=== PATIENT | female | born 1935 | race American Indian/Alaskan Native ===

== ENCOUNTER 2019-02-11 16:52 | Emergency (ER) | payer MEDICARE ==
[2019-02-11] MEDS ORDERED: ASPIRIN PO ONE (17:30)
[2019-02-11 18:13] LABS: Basophils % (Auto) 0.9 % (0.0-1.8); Eosinophils # (Auto) 0.1 K/mm3 (0.0-0.4); Eosinophils % (Auto) 2.2 % (0.0-4.3); Hematocrit 28.1 % (30.3-42.9); Hemoglobin 9.2 gm/dl (10.1-14.3); Lymphocytes # (Auto) 1.8 K/mm3 (1.2-5.4); Lymphocytes % (Auto) 35.6 % (13.4-35.0); Mean Corpuscular HGB Conc 33 % (30-34); Mean Corpuscular Volume 85 fl (79-97); Monocytes # (Auto) 0.6 K/mm3 (0.0-0.8); Monocytes % (Auto) 11.3 % (0.0-7.3); Platelet Count 440 K/mm3 (140-440); Red Blood Count 3.31 M/mm3 (3.65-5.03)
[2019-02-11 18:22] LABS: Red Cell Distribution Width 20.9 % (13.2-15.2)
--- NOTE | 2019-02-11 18:24 | XRay Report ---
CHEST 1 VIEW INDICATION: Chest Pain COMPARISON: 09/27/2015 FINDINGS: Support devices: None Heart: Stable. Lungs/Pleura: Inspiration is less optimal on today's exam. Minimal parenchymal density in the right m id and lower lung is probably atelectasis. I see no convincing evidence of acute pulmonary disease. IMPRESSION: 1. No significant change. Signer Name: Silas Contreras MD Signed: 02/11/2019 6:19 PM Workstation Name: [id number]
[2019-02-11 18:33] LABS: Albumin 2.3 g/dL (3.9-5); BUN/Creatinine Ratio 16; Blood Urea Nitrogen 14 mg/dL (7-17); Calcium 8.4 mg/dL (8.4-10.2); Hemolysis Index 1
[2019-02-11 18:37] LABS: Alanine Aminotransferase < 5 units/L (7-56)
--- NOTE | 2019-02-11 18:58 | Emergency Department Report ---
ED General Adult HPI - General Chief complaint: Abdominal Pain Stated complaint: CHEST PAIN Time Seen by Provider: 02/11/19 18:30 Source: patient, EMS Mode of arrival: Stretcher Limitations: No Limitations - History of Present Illness Initial comments: 83-year-old female with a history of arthritis, gastroesophageal reflux disease hypertension and dementia presents with the complaint of chest pain went to her left arm for the past 5 days. Patient also with abdominal pain. Patient states that she had an episode of vomiting yesterday but has been tolerating very little by mouth diet. Patient states that she has had diarrhea but denies any hematochezia. Patient denies any hematemesis. Patient denies any radiation of the chest into her back. Patient states he has no prior history of blood clots in her legs or lungs. - Related Data Home Medications Medication Instructions Recorded Confirmed Last Taken Furosemide 40 mg PO DAILY 05/22/15 09/27/15 09/26/15 40 mg Losartan/Hydrochlorothiazide 12.5 mg PO QAM 05/22/15 09/27/15 09/26/15 [Losartan-Hctz 50-12.5 mg Tab] 12.5 MG Pravastatin Sodium 40 mg PO QHS 05/22/15 09/27/15 09/26/15 40 mg Tramadol HCl [traMADol] 50 mg PO PRN PRN 05/22/15 09/27/15 05/21/15 Zolpidem Tartrate 10 mg PO QHS 05/22/15 09/27/15 05/21/15 10 mg Previous Rx's Medication Instructions Recorded Last Taken Type ALPRAZolam [Xanax TAB] 0.25 mg PO BID PRN #30 tab 09/29/15 Unknown Rx FLUoxetine [PROzac] 10 mg PO DAILY #30 tablet 09/29/15 Unknown Rx Lisinopril [Zestril TAB] 20 mg PO DAILY #30 tablet 09/29/15 Unknown Rx OLANzapine [Zyprexa] 10 mg PO DAILY #30 tablet 09/29/15 Unknown Rx Oxybutynin [Ditropan] 5 mg PO DAILY #30 tablet 09/29/15 Unknown Rx Simvastatin (Nf) [Zocor TAB] 20 mg PO QHS #30 tablet 09/29/15 Unknown Rx Zolpidem [Ambien] 5 mg PO QHS #30 tab 09/29/15 Unknown Rx amLODIPine [Norvasc] 10 mg PO QAM #30 tablet 09/29/15 Unknown Rx Docusate Sodium [Colace] 100 mg PO BID PRN #20 capsule 02/11/19 Unknown Rx Famotidine [Pepcid] 20 mg PO BID #30 tablet 02/11/19 Unknown Rx Ferrous Sulfate [Feosol 325 MG tab] 325 mg PO TID #90 tablet 02/11/19 Unknown Rx traMADol [Ultram] 50 mg PO Q6HR PRN #20 tablet 02/11/19 Unknown Rx Allergies Allergy/AdvReac Type Severity Reaction Status Date / Time No Known Allergies Allergy Unverified 05/22/15 06:04 ED Review of Systems ROS: Stated complaint: CHEST PAIN Other details as noted in HPI Constitutional: denies: chills, fever Eyes: denies: eye pain, eye discharge, vision change ENT: denies: ear pain, throat pain Respiratory: denies: cough, shortness of breath, wheezing Cardiovascular: chest pain Endocrine: no symptoms reported Gastrointestinal: abdominal pain Genitourinary: denies: urgency, dysuria, discharge Musculoskeletal: denies: back pain, joint swelling, arthralgia Skin: denies: rash, lesions Neurological: denies: headache, weakness, paresthesias Psychiatric: denies: anxiety, depression Hematological/Lymphatic: denies: easy bleeding, easy bruising ED Past Medical Hx - Past Medical History Previous Medical History?: Yes Hx Hypertension: Yes Hx Heart Attack/AMI: No Hx Congestive Heart Failure: No Hx GERD: Yes Hx Renal Disease: Yes (CKD) Hx Arthritis: Yes Hx Psychiatric Treatment: Yes (Dementia) Hx HIV: No - Surgical History Past Surgical History?: Yes Hx Coronary Stent: No Hx Pacemaker: No Hx Appendectomy: Yes - Social History Smoking Status: Never Smoker Substance Use Type: None - Medications Home Medications: Home Medications Medication Instructions Recorded Confirmed Last Taken Type Furosemide 40 mg PO DAILY 05/22/15 09/27/15 09/26/15 History 40 mg Losartan/Hydrochlorothiazide 12.5 mg PO QAM 05/22/15 09/27/15 09/26/15 History [Losartan-Hctz 50-12.5 mg Tab] 12.5 MG Pravastatin Sodium 40 mg PO QHS 05/22/15 09/27/15 09/26/15 History 40 mg Tramadol HCl [traMADol] 50 mg PO PRN PRN 05/22/15 09/27/15 05/21/15 History Zolpidem Tartrate 10 mg PO QHS 05/22/15 09/27/15 05/21/15 History 10 mg ALPRAZolam [Xanax TAB] 0.25 mg PO BID PRN #30 tab 09/29/15 Unknown Rx FLUoxetine [PROzac] 10 mg PO DAILY #30 tablet 09/29/15 Unknown Rx Lisinopril [Zestril TAB] 20 mg PO DAILY #30 tablet 09/29/15 Unknown Rx OLANzapine [Zyprexa] 10 mg PO DAILY #30 tablet 09/29/15 Unknown Rx Oxybutynin [Ditropan] 5 mg PO DAILY #30 tablet 09/29/15 Unknown Rx Simvastatin (Nf) [Zocor TAB] 20 mg PO QHS #30 tablet 09/29/15 Unknown Rx Zolpidem [Ambien] 5 mg PO QHS #30 tab 09/29/15 Unknown Rx amLODIPine [Norvasc] 10 mg PO QAM #30 tablet 09/29/15 Unknown Rx Docusate Sodium [Colace] 100 mg PO BID PRN #20 capsule 02/11/19 Unknown Rx Famotidine [Pepcid] 20 mg PO BID #30 tablet 02/11/19 Unknown Rx Ferrous Sulfate [Feosol 325 MG tab] 325 mg PO TID #90 tablet 02/11/19 Unknown Rx traMADol [Ultram] 50 mg PO Q6HR PRN #20 tablet 02/11/19 Unknown Rx ED Physical Exam - General Limitations: No Limitations General appearance: alert, other (comfortable) - Head Head exam: Present: atraumatic, normocephalic - Eye Eye exam: Present: normal appearance - ENT ENT exam: Present: mucous membranes dry - Neck Neck exam: Present: normal inspection - Respiratory Respiratory exam: Present: normal lung sounds bilaterally. Absent: respiratory distress - Cardiovascular Cardiovascular Exam: Present: regular rate, normal rhythm. Absent: systolic murmur, diastolic murmur, rubs, gallop - GI/Abdominal GI/Abdominal exam: Present: soft, tenderness (mild ), normal bowel sounds. Absent: guarding, rebound - Extremities Exam Extremities exam: Present: normal inspection - Back Exam Back exam: Present: normal inspection - Neurological Exam Neurological exam: Present: alert, oriented X3 - Psychiatric Psychiatric exam: Present: normal affect, normal mood - Skin Skin exam: Present: warm, dry, intact, normal color. Absent: rash ED Course Vital Signs 02/11/19 02/11/19 17:05 20:38 Temperature 97.8 F Pulse Rate 92 H 83 Respiratory 17 19 Rate Blood Pressure 112/58 Blood Pressure 118/67 [Right] O2 Sat by Pulse 99 100 Oximetry ED Medical Decision Making - Lab Data Result diagrams: 02/11/19 17:42 02/11/19 17:42 - EKG Data EKG shows normal: sinus rhythm Rate: normal - EKG Data When compared to previous EKG there are: no significant change Interpretation: no acute changes - Medical Decision Making Patient has a CT PE was shows no acute pathology. Patient also has a CT of abdomen and pelvis shows no acute pathology. Patient noted to have constipation present as well as possible gastritis. Patient noted to have an anemia as well denies any hematochezia. Patient currently comfortable appears no acute distress. - Differential Diagnosis PE; Pneumonia; Dehdyration; Electrolyte Abnormality; Anemia Critical care attestation.: If time is entered above; I have spent that time in minutes in the direct care of this critically ill patient, excluding procedure time. ED Disposition Clinical Impression: Anemia, Chest pain, Abdominal pain, Gastritis Disposition: TO HOME OR SELFCARE Is pt being admited?: No Does the pt Need Aspirin: No Condition: Stable Instructions: Abdominal Pain (ED), Chest Pain (ED) Prescriptions: Docusate Sodium [Colace] 100 mg PO BID PRN #20 capsule PRN Reason: Constipation Ferrous Sulfate [Feosol 325 MG tab] 325 mg PO TID #90 tablet Famotidine [Pepcid] 20 mg PO BID #30 tablet traMADol [Ultram] 50 mg PO Q6HR PRN #20 tablet PRN Reason: Pain Referrals: PRIMARY CARE,MD [Primary Care Provider] - 3-5 Days Time of Disposition: 22:55 Print Language: HAITIAN
[2019-02-11] MEDS ORDERED: ASPIRIN ONE (20:05)
[2019-02-11 20:23] LABS: Bacteria,Urine 1+ /HPF (Negative); Bilirubin,Urine NEG (Negative); Blood,Urine NEG (Negative); Color,Urine Yellow (Yellow); Mucus,Urine FEW /HPF; Urobilinogen,Urine < 2.0 mg/dL (<2.0)
[2019-02-11 20:39] VITALS: BP 118/67
[2019-02-11] MEDS ORDERED: ZOFRAN IV ONE (21:09)
[2019-02-11] MEDS ORDERED: MORPHINE IV ONE (21:09)
--- NOTE | 2019-02-11 22:05 | Cat Scan Report ---
CT angiography of the chest with 2-D reconstructions INDICATION: Severe chest pain Thin section axial images were obtained as well as 2-D reformatted MIP images in all 3 planes FINDINGS: There is no hilar or mediastinal adenopathy. No pleural or pericardial effusion. Lung windo ws show no nodules, masses or infiltrates. There is no thoracic aortic aneurysm or dissection present . Routine axial images as well as 2-D reconstructions through the pulmonary arteries show no evidence of emboli. There is generalized thyroid enlargement. There is minimal basilar atelectasis. Thoracic aorta is ectatic but not aneurysmal. CT of the abdomen shows 2 small hepatic cysts. The spleen, adrenal glands and kidneys show no signifi cant abnormalities with a small right renal low densities probably cysts. Pancreas shows no masses. T he pancreatic duct is slightly prominent but this is nonspecific. No evidence of pancreatitis. Gallbl adder is grossly normal. No biliary tree dilation. No fluid or adenopathy in the upper abdomen. There is moderate vascular calcification without aneurysm. CT of the pelvis shows an atrophic uterus. The rectum is significantly distended with stool indicatin g fecal impaction. No bowel obstruction seen. No pelvic fluid or adenopathy. No diverticulosis or div erticulitis. No significant skeletal lesion. There is generalized anasarca. IMPRESSION: Negative study. No PTE or pneumonia and no significant intra-abdominal abnormality. Automated exposure control was utilized to diminish radiation dose. Signer Name: Emile Doherty MD Signed: 02/11/2019 10:01 PM Workstation Name: [id number]
--- NOTE | 2019-02-11 22:18 | Cat Scan Report ---
CT ABDOMEN AND PELVIS WITH CONTRAST INDICATION / CLINICAL INFORMATION: severe abdominal pain. TECHNIQUE: Axial CT images were obtained through the abdomen and pelvis after 100 mL Omnipaque [address] scans at this location are performed using CT dose reduction for ALARA by means of automated exposure control. COMPARISON: None available. FINDINGS: LIVER: No significant abnormality. GALLBLADDER: No significant abnormality. BILE DUCTS: No significant abnormality. PANCREAS: Atrophic but otherwise unremarkable. SPLEEN: No significant abnormality. ADRENALS: No significant abnormality. RIGHT KIDNEY and URETER: Small cysts. No inflammatory changes or hydronephrosis. LEFT KIDNEY and URETER: No significant abnormality. STOMACH and SMALL BOWEL: Underdistended, limiting evaluation. Thickened appearance of the mucosal fol ds in the cardiac region and fundus. COLON: Substantial fecal burden throughout the colon with a very large stool ball in the rectum, maciej acteristic of impaction. APPENDIX: Not definitely identified. It no evidence of acute inflammatory process is seen in the righ t lower quadrant. PERITONEUM: No free fluid. No free air. No fluid collection. LYMPH NODES: No significant adenopathy. AORTA and ARTERIES: Tortuous abdominal aorta and iliac arteries with atherosclerotic changes but no a neurysmal dilatation. Celiac, SMA, renal arteries, and SHERIF are patent at their origins. IVC and VEINS: No significant abnormality. URINARY BLADDER: No significant abnormality. REPRODUCTIVE ORGANS: No significant abnormality. ADDITIONAL FINDINGS: Diffuse body wall edema. SKELETAL SYSTEM: No acute abnormality. Diffuse, subjective osteopenia. IMPRESSION: 1. Large stool ball in the rectum, characteristic of fecal impaction. 2. Thickened appearance of the gastric wall in the cardiac region and fundus may be related to underd istended state versus gastritis. 3. No other acute abnormality. Incidental findings as above. Signer Name: Ayaan Chang MD Signed: 02/11/2019 10:13 PM Workstation Name: [id number]
== END 2019-02-12 00:10 | disposition home or self-care (01) ==
LOC: ED 16:52
DX: K29.70 Gastritis, unspecified, without bleeding (principal); D64.9 Anemia, unspecified; R07.89 Other chest pain; R10.9 Unspecified abdominal pain; K21.9 Gastro-esophageal reflux disease without esophagitis; I12.9 Hypertensive chronic kidney disease with stage 1 through stage 4 chronic kidney disease, or unspecified chronic kidney disease; N18.9 Chronic kidney disease, unspecified; M19.90 Unspecified osteoarthritis, unspecified site; F03.90 Unspecified dementia, unspecified severity, without behavioral disturbance, psychotic disturbance, mood disturbance, and anxiety; Z90.49 Acquired absence of other specified parts of digestive tract; Z79.899 Other long term (current) drug therapy
CPT/HCPCS: 36415; 71045; 71275; 74177; 80053; 81001; 84484; 85025; 93005; 93010; 96374; 96375; 99285; J2270; J2405; Q9967